=== PATIENT | female | born 1995 | race Caucasian/White ===

== ENCOUNTER 2020-08-16 11:17 | Emergency (ER) | payer MEDICAID ==
[~2020-08-16] VITALS: Ht 157.5 cm; Wt 68.0 kg
[2020-08-16 11:21] VITALS: BP 126/82
[2020-08-16] MEDS ORDERED: TETRACAINE 0.5% OPHTH DROPS 4ML LEFTEYE NR (12:00)
[2020-08-16] MEDS ORDERED: FLUORESCEIN SODIUM 1MG/STRIP LEFTEYE NR (12:00)
== END 2020-08-16 13:02 | disposition home or self-care (01) ==
LOC: ER 11:35
DX: S05.02XA Injury of conjunctiva and corneal abrasion without foreign body, left eye, initial encounter (principal); Y01.XXXA Assault by pushing from high place, initial encounter; Y93.89 Activity, other specified; Y92.89 Other specified places as the place of occurrence of the external cause; Y99.8 Other external cause status
CPT/HCPCS: 99283